=== PATIENT | female | born 1990 | race African-American/Black ===

== ENCOUNTER 2019-06-29 15:37 | Emergency (ER) | payer OTHER ==
[~2019-06-29] VITALS: Ht 160 cm; Wt 77.1 kg
[2019-06-29] MEDS ORDERED: ACETAMINOPHEN 325 MG TAB PO ONE ×2 (15:45→21:15)
[2019-06-29] MEDS ORDERED: IBUPROFEN 400 MG TAB PO ONE (18:00)
[2019-06-29] MEDS ORDERED: SODIUM CHLORIDE 0.9% 1,000 ML IV ONE ×2 (18:00→21:00)
[2019-06-29 18:03] LABS: Basophils # (auto) 0.1 uL; Basophils % (auto) 0.3 % (0.0-2.0); Eosinophils # (auto) 0 uL; Hematocrit 40.4 % (36.0-46.0); Hemoglobin 13.9 g/dL (12.2-16.2); Lymphocytes # (auto) 0.6 uL; Lymphocytes % (auto) 2.7 % (10.0-50.0); Mean Corpuscular Hemoglobin 29.8 pg (28.0-32.0); Mean Corpuscular Hgb Conc. 34.3 g/dL (32.0-36.0); Mean Corpuscular Volume 86.9 fL (80.0-100.0); Monocytes # (auto) 2.5 uL; Monocytes % (auto) 10.4 % (0.0-12.0); Neutrophils # (auto) 20.7 uL; Neutrophils % (auto) 86.6 % (37.0-80.0); Platelet Count (auto) 211 10^3/uL (140-450); Red Blood Cells 4.65 10^6/uL (4.0-5.20); Red Cell Distribution Width 13.3 % (11.8-14.3); White Blood Cell 23.9 10^3/uL (4.4-10.8)
[2019-06-29 18:35] LABS: Albumin 3.1 g/dL (3.4-5.0); Calcium 8.5 mg/dL (8.5-10.1); Potassium 3.1 mmol/L (3.5-5.1)
[2019-06-29 18:39] LABS: BUN/Creatinine Ratio 8.4; Bilirubin, Total 0.8 mg/dL (0.2-1.0); Total Protein 7.7 g/dL (6.4-8.2)
[2019-06-29] MEDS ORDERED: PIPERACILLIN-TAZOB 3.375GM 100 ML IV ONE (19:15)
[2019-06-29] MEDS ORDERED: VANCOMYCIN PER PHARMACY 0 MG IV SCH (19:15)
[2019-06-29 19:42] LABS: Urine Bacteria NONE SEEN /hpf (None Seen); Urine Blood 1+ /uL (Negative); Urine Mucus FEW (None Seen); Urine Specific Gravity 1.017 (1.001-1.035); Urine WBC 1208 /hpf (0 - 5)
[2019-06-29] MEDS ORDERED: VANCOMYCIN 1GM/250ML 250 ML IV ONE (20:00)
[2019-06-30] MEDS ORDERED: SODIUM CHLORIDE 0.9% 1,000 ML IV ONE (00:45)
[2019-06-30] MEDS ORDERED: IOHEXOL 300 MG/ML 100ML BOTTLE IJ ONE (00:50)
[2019-06-30 02:16] VITALS: BP 95/57
== END 2019-06-30 02:32 | disposition home or self-care (01) ==
LOC: ER 15:37
DX: N12 Tubulo-interstitial nephritis, not specified as acute or chronic (principal); N39.0 Urinary tract infection, site not specified
CPT/HCPCS: 36415; 71045; 74177; 80053; 81001; 81025; 83605; 84702; 85025; 87040; 87086; 96361; 96365; 96367; 99284; J2543; J3370; J7030; Q9967

== ENCOUNTER 2021-05-02 07:51 | Emergency (ER) | payer MEDICAID, OTHER ==
[~2021-05-02] VITALS: Ht 160 cm; Wt 77.1 kg
[2021-05-02 09:13] VITALS: BP 153/98
== END 2021-05-02 09:52 | disposition home or self-care (01) ==
LOC: ER 07:51
DX: H61.23 Impacted cerumen, bilateral (principal)
CPT/HCPCS: 69209

== ENCOUNTER 2022-10-04 00:43 | Emergency (ER) | payer MEDICAID, OTHER ==
[~2022-10-04] VITALS: Ht 160 cm; Wt 81.8 kg
[2022-10-04 01:19] VITALS: BP 155/104
[2022-10-04 01:54] LABS: Basophils # (auto) 0.1 10 ^3/uL (0-0.2); Basophils % (auto) 0.5 % (0.0-2.0); Eosinophils # (auto) 0.3 10 ^3/uL (0-0.8); Eosinophils % (auto) 2.6 % (0.0-7.0); Hemoglobin 12.1 g/dL (12.2-16.2); Lymphocytes # (auto) 1.3 10 ^3/uL (0.4-5.4); Lymphocytes % (auto) 10.1 % (10.0-50.0); Mean Corpuscular Hemoglobin 31.3 pg (28.0-32.0); Mean Corpuscular Hgb Conc. 33.7 g/dL (32.0-36.0); Mean Corpuscular Volume 92.9 fL (80.0-100.0); Monocytes # (auto) 0.9 10 ^3/uL (0-1.3); Monocytes % (auto) 6.6 % (0.0-12.0); Neutrophils # (auto) 10.4 10 ^3/uL (1.6-8.6); Neutrophils % (auto) 80.2 % (37.0-80.0); Red Blood Cells 3.88 10^6/uL (4.0-5.20); Red Cell Distribution Width 14.5 % (11.8-14.3)
[2022-10-04 02:08] LABS: Albumin 2.7 g/dL (3.4-5.0); BUN/Creatinine Ratio 14.1; Calcium 8.5 mg/dL (8.5-10.1); Potassium 3.9 mmol/L (3.5-5.1)
[2022-10-04 02:11] LABS: Bilirubin, Total 0.3 mg/dL (0.2-1.0); Total Protein 6.4 g/dL (6.4-8.2)
[2022-10-04 02:52] LABS: Urine Bacteria NONE SEEN /hpf (None Seen); Urine Blood 1+ /uL (Negative); Urine Specific Gravity 1.004 (1.001-1.035); Urine WBC <1 /hpf (0 - 5)
== END 2022-10-04 05:38 | disposition home or self-care (01) ==
LOC: ER 00:44
DX: R42 Dizziness and giddiness (principal); R74.01 Elevation of levels of liver transaminase levels; D64.9 Anemia, unspecified; D72.829 Elevated white blood cell count, unspecified; I10 Essential (primary) hypertension
CPT/HCPCS: 36415; 80053; 81001; 85025; 93005

== ENCOUNTER 2022-10-16 10:40 | Inpatient (IN) | payer OTHER ==
[~2022-10-16] VITALS: Ht 170.2 cm; Wt 71.8 kg
[2022-10-16 12:21] LABS: Basophils # (auto) 0 10 ^3/uL (0-0.2); Basophils % (auto) 0.4 % (0.0-2.0); Eosinophils # (auto) 0.2 10 ^3/uL (0-0.8); Eosinophils % (auto) 1.4 % (0.0-7.0); Hematocrit 44.8 % (36.0-46.0); Hemoglobin 15.1 g/dL (12.2-16.2); Mean Corpuscular Hemoglobin 31.5 pg (28.0-32.0); Mean Corpuscular Hgb Conc. 33.8 g/dL (32.0-36.0); Mean Corpuscular Volume 93.2 fL (80.0-100.0); Monocytes # (auto) 0.4 10 ^3/uL (0-1.3); Monocytes % (auto) 3.7 % (0.0-12.0); Neutrophils # (auto) 9.2 10 ^3/uL (1.6-8.6); Neutrophils % (auto) 85.5 % (37.0-80.0); Nucleated Red Blood Cells % 0.1 %; Red Cell Distribution Width 14.1 % (11.8-14.3); White Blood Cell 10.7 10^3/uL (4.4-10.8)
[2022-10-16 12:38] LABS: Albumin 3.7 g/dL (3.4-5.0); Potassium 4.3 mmol/L (3.5-5.1)
[2022-10-16 12:41] LABS: BUN/Creatinine Ratio 9.5; Bilirubin, Total 0.4 mg/dL (0.2-1.0); Total Protein 7.4 g/dL (6.4-8.2)
[2022-10-16 15:12] LABS: Urine Bacteria NONE SEEN /hpf (None Seen); Urine Blood Negative /uL (Negative); Urine Specific Gravity 1.006 (1.001-1.035); Urine WBC 3 /hpf (0 - 5)
[2022-10-16] MEDS ORDERED: MORPHINE SULFATE INJ 2 MG/ml SYRG IV PRN ×2 (15:30→15:45)
[2022-10-16] MEDS ORDERED: hydrALAZINE HCL 20 MG/ML VL IV PRN (15:30)
[2022-10-16] MEDS ORDERED: hydrALAZINE HCL 20 MG/ML VL IV ONE (15:30)
[2022-10-16] MEDS ORDERED: NITROGLYCERIN 0.4 MG SL TAB SL PRN ×2 (15:30→15:45)
[2022-10-16 15:47] LABS: Magnesium 2.3 mg/dL (1.6-2.6)
[2022-10-16 15:57] LABS: Alcohol, Urine < 3.0 mg/dL (0-10); Amphetamine Screen, Urine NEGATIVE (NEGATIVE); Barbiturate Scree,Urine NEGATIVE (NEGATIVE); Benzodiazephine Screen, Urine NEGATIVE (NEGATIVE); Cannabinoid Screen, Urine NEGATIVE (NEGATIVE); Cocaine Screen, Urine NEGATIVE (NEGATIVE); Opiate Scree,Urine NEGATIVE (NEGATIVE); Phencyclidine Screen, Urine NEGATIVE (NEGATIVE)
[2022-10-16] MEDS ORDERED: IOHEXOL 350 MG/ML 100ML IJ ONE ×2 (16:08→17:09)
[2022-10-16] MEDS ORDERED: LIDOCAINE 2%HCL (LOCAL ANESTH.) INJ 10ml MDV ONE ×2 (16:08→16:49)
[2022-10-16] MEDS ORDERED: ANGIOMAX 250 MG VIAL IV ONE (16:40)
[2022-10-16] MEDS ORDERED: SODIUM CHL 0.9% 0 ML ONE (16:41)
[2022-10-16] MEDS ORDERED: MIDAZOLAM HCL 2MG/2ML 2ml VIAL (1mg/ml) ONE ×2 (16:41→17:30)
[2022-10-16] MEDS ORDERED: HEPARIN SODIUM (PORCINE) 5000 UNITS/ML 1ML VIAL ONE (16:41)
[2022-10-16] MEDS ORDERED: VERAPAMIL 2.5MG/ML INJ 2ML VIAL IV ONE (16:41)
[2022-10-16] MEDS ORDERED: fentaNYL CITRATE 100 MCG/2 ML VL ONE (16:41)
[2022-10-16 17:42] VITALS: BP 129/84
[2022-10-16 17:57] VITALS: BP 115/70
[2022-10-16 18:12] VITALS: BP 117/72
[2022-10-16 18:27] VITALS: BP 120/73
[2022-10-16 18:42] VITALS: BP 131/80
[2022-10-16] MEDS ORDERED: LABE300T3 PO (20:46)
[2022-10-16] MEDS: ACETAMINOPHEN 325 MG TAB PO PRN (20:49)
[2022-10-16 22:02] VITALS: BP 135/77
[2022-10-17 06:44] LABS: Basophils # (auto) 0 10 ^3/uL (0-0.2); Basophils % (auto) 0.5 % (0.0-2.0); Eosinophils # (auto) 0.1 10 ^3/uL (0-0.8); Eosinophils % (auto) 0.7 % (0.0-7.0); Hematocrit 42.9 % (36.0-46.0); Hemoglobin 14.4 g/dL (12.2-16.2); Lymphocytes # (auto) 1.5 10 ^3/uL (0.4-5.4); Lymphocytes % (auto) 16.6 % (10.0-50.0); Mean Corpuscular Hgb Conc. 33.6 g/dL (32.0-36.0); Mean Corpuscular Volume 92.3 fL (80.0-100.0); Monocytes # (auto) 0.7 10 ^3/uL (0-1.3); Monocytes % (auto) 7.8 % (0.0-12.0); Neutrophils # (auto) 6.6 10 ^3/uL (1.6-8.6); Neutrophils % (auto) 74.4 % (37.0-80.0); Nucleated Red Blood Cells % 0.1 %; Red Blood Cells 4.65 10^6/uL (4.0-5.20); Red Cell Distribution Width 14.2 % (11.8-14.3); White Blood Cell 8.9 10^3/uL (4.4-10.8)
[2022-10-17 07:06] LABS: Calcium 8.4 mg/dL (8.5-10.1); Potassium 3.1 mmol/L (3.5-5.1)
[2022-10-17 07:12] LABS: Albumin 3.3 g/dL (3.4-5.0); Bilirubin, Total 0.4 mg/dL (0.2-1.0); Total Protein 6.4 g/dL (6.4-8.2)
[2022-10-17 08:30] VITALS: BP 136/82
[2022-10-17] MEDS: ACETAMINOPHEN 325 MG TAB PO PRN (09:15)
[2022-10-17] MEDS ORDERED: POTASSIUM EFFERVESENT TAB 25 MEQ PO ONE (10:45)
[2022-10-17 12:30] VITALS: BP 138/88
[2022-10-17] MEDS ORDERED: IBUP800T27 PO (13:25)
[2022-10-17] MEDS ORDERED: ATORVASTATIN 20 MG TAB PO SCH (22:00)
== END 2022-10-17 15:41 | disposition home or self-care (01) | DRG 561 ==
LOC: EDBD 10:40 → ER 10:40 → TELE 15:42 → TELE-WESTW 18:55
PROVIDERS: ADMIT Registered Nurse; ATTEND Internal Medicine
PROC: B2111ZZ Fluoroscopy of Multiple Coronary Arteries using Low Osmolar Contrast (ICD-10-PCS; principal; 2022-10-16)
PROC: B2151ZZ Fluoroscopy of Left Heart using Low Osmolar Contrast (ICD-10-PCS; 2022-10-16)
PROC: 4A023N7 Measurement of Cardiac Sampling and Pressure, Left Heart, Percutaneous Approach (ICD-10-PCS; 2022-10-16)
DX: O99.43 Diseases of the circulatory system complicating the puerperium (principal); I21.4 Non-ST elevation (NSTEMI) myocardial infarction; I40.9 Acute myocarditis, unspecified; E66.01 Morbid (severe) obesity due to excess calories; Z20.822 Contact with and (suspected) exposure to COVID-19; O99.285 Endocrine, nutritional and metabolic diseases complicating the puerperium; O16.5 Unspecified maternal hypertension, complicating the puerperium; O99.215 Obesity complicating the puerperium; E78.5 Hyperlipidemia, unspecified; Z94.7 Corneal transplant status
CPT/HCPCS: 36415; 71045; 80053; 80061; 80307; 81001; 82553; 83036; 83735; 83880; 84443; 84484; 85025; 85379; 87426; 93005; 93306; 93970; 99291; G0378; J2001; J2250

== ENCOUNTER 2023-04-27 20:50 | Emergency (ER) | payer MEDICAID, OTHER ==
[~2023-04-27 20:50] MED LIST: IBUP-1456 PO
== END 2023-04-27 22:15 | disposition left against medical advice (07) ==
LOC: ER 20:50
DX: I10 Essential (primary) hypertension (principal); Z53.21 Procedure and treatment not carried out due to patient leaving prior to being seen by health care provider